=== PATIENT | female | born 2000 | race Caucasian/White ===

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

== ENCOUNTER → 2022-10-12 09:24 | Outpatient (BNVA) | payer MEDICAID, SELFPAY | PROVIDERS: PCP Nurse Practitioner Family; Visit Provider Nurse Practitioner Women's Health | DX: Z34.90 Encounter for supervision of normal pregnancy, unspecified, unspecified trimester (principal); Z32.00 Encounter for pregnancy test, result unknown | CPT/HCPCS: 81025; 84315 ==

== ENCOUNTER → 2022-10-19 08:48 | Outpatient (BNVA) | payer MEDICAID, SELFPAY | PROVIDERS: PCP Nurse Practitioner Family; Visit Provider Obstetrics & Gynecology | DX: Z36.87 Encounter for antenatal screening for uncertain dates (principal) | CPT/HCPCS: 76817 ==

== ENCOUNTER 2022-10-22 11:51 | Outpatient (CLI) | payer MEDICAID, SELFPAY | END 2022-10-22 11:52 | disposition home or self-care (01) | PROVIDERS: Visit Provider Nurse Practitioner Women's Health | DX: O02.1 Missed abortion (principal) | CPT/HCPCS: 84702 ==

== ENCOUNTER 2022-10-24 13:05 | Outpatient (CLI) | payer MEDICAID, SELFPAY | END 2022-10-24 13:06 | disposition home or self-care (01) | PROVIDERS: PCP Nurse Practitioner Women's Health; Visit Provider Nurse Practitioner Women's Health | DX: O02.1 Missed abortion (principal) | CPT/HCPCS: 36415; 84702 ==

== ENCOUNTER → 2022-10-28 11:30 | Outpatient (BNVA) | payer MEDICAID, SELFPAY | PROVIDERS: PCP Nurse Practitioner Women's Health; Visit Provider Nurse Practitioner Women's Health | DX: O02.1 Missed abortion (principal) | CPT/HCPCS: 84702 ==

== ENCOUNTER 2022-11-05 14:04 | Emergency (ER) | payer MEDICAID, SELFPAY ==
[2022-11-05 14:16] VITALS: BP 118/76; PULSE 78; RESP 16; TEMP 36.4; O2SAT 99; BMI 26.6
--- NOTE | 2022-11-05 14:25 | USR_ITS ---
PROCEDURE INFORMATION: Exam: US , Transvaginal Exam date and time: 11/05/2022 2:45 PM Age: 22 years old Clinical indication: Lmp or gestational age (in weeks): 11w1d, by US 8w5d; Antepartum complications; Bleeding; ; Additional info: Bleeding 10 weeks LABS AND CLINICAL REPORTS: Last menstrual period start date: 08/19/2022 Gestational age (Established): 11 w 1 d Estimated due date (Established): 05/26/2023 TECHNIQUE: Imaging protocol: Real-time transvaginal obstetrical ultrasound of the maternal pelvis with image documentation. Transvaginal imaging was used for better evaluation of the fetus, adnexa, and/or cervix. COMPARISON: US OB transvaginal [id number] 10/19/2022 8:50 AM FINDINGS: Gestation: Single intrauterine . heart rate: There is no cardiac activity. Placenta: No visible subchorionic hemorrhage. BIOMETRY: Gestational age (AUA): 8 w 5 d by crown-rump length. Mean sac diameter: Mean sac diameter is 3.8 cm. This is slightly increased since 10/19/2022. Brodnax-Rump length (CRL): Brodnax-rump length is 2.2 cm (8 weeks 6 days). This is slightly decreased since 10/19/2022. MATERNAL: Cervix: Cervix is closed. Right ovary/adnexa: The right ovary is morphologically normal. The right ovary measures 2.2 x 2.2 x 1.7 cm for a volume of 4.3 cc. There is normal blood flow in the right ovary. Left ovary/adnexa: The left ovary is morphologically normal. The left ovary measures 2.9 x 2.4 x 1.8 cm for a volume of 6 cc. There is normal blood flow in the left ovary. Intraperitoneal space: Trace intraperitoneal free fluid in the posterior cul-de-sac. US/US OB transvaginal [id number] IMPRESSION: Intrauterine demise with persistent intrauterine gestational sac and closed cervix. Findings are similar to those seen on 10/19/2022.
--- NOTE | 2022-11-05 16:00 | ED_ITS ---
HPI - General: Chief complaint: Vaginal Bleeding Stated complaint: 10 weeks, vaginal bleeding Time Seen by Provider: 11/05/22 14:07 History of Present Illness: Ilda Henning is a 22-year-old female that presents to the emergency department with complaints of vaginal bleeding and abdominal cramping. Patient was estimated to be about 10 weeks although on October 19 she underwent an ultrasound that revealed demise. States that she has followed up although there is no documentation. Patient is alert and oriented with hemodynamic stability Date of Last Menstrual Period: 08/16/22 Associated symptoms: Deny abdominal pain, dysuria, headache(s), malaise, nausea or vomiting Review of Systems General: Reports: 10 or more systems reviewed and unremarkable except in HPI and below Const: Denies: fever(s), chills, change in appetite, change in weight, fatigue or malaise Eyes: Denies: change in vision, eye discomfort, eye discharge or eye redness ENMT: Denies: throat pain, enlarged tonsils, odynophagia, hoarseness, ear or mastoid pain, ear discharge, change in hearing, tinnitus, nasal discharge, nasal congestion, post nasal drip or sinus pain Card: Denies: chest pain, palpitations, irregular heart rhythm, edema, dyspnea on exertion, orthopnea or leg pain with exertion Resp: Denies: dyspnea, productive cough, non-productive cough, wheezing, stridor or chest congestion GI: Denies: abdominal pain, nausea, vomiting, dysphagia, diarrhea, constipation, bloating, GI cramping or hematochezia : Denies: flank pain, difficulty voiding, dysuria, urinary frequency, urinary urgency, urinary hesitancy, oliguria or hematuria Musc: Denies: neck pain, back pain, extremity pain, joint pain, joint swelling, joint redness, joint warmth or muscle weakness Skin/Breast: Denies: rash, pruritus, erythema, photosensitivity or new lesions Neuro: Denies: headache(s), numbness in extremities, weakness in extremities, sensory changes, lack of coordination, difficulty walking, frequent falls, dizziness, confusion, Slurred speech present, difficulty communicating thoughts, seizure-like activity or involuntary movements Endo: Denies: polyuria, polydipsia or tired all the time Yohannes/Lymph: Denies: easy bruising or easy bleeding PFSH ED PFSH: Surgical History History of tonsillectomy Tympanic tube insertion Social History Smoking and tobacco status: current every day smoker Second hand smoke exposure: Yes Smoking risk assessment/counseling performed?: No Alcohol intake: never Desire information about alcohol rehabilitation?: No Counseling given: No Substance/Drug Use: never Desire information about substance/drug rehabilitation?: No Counseling given: No Female Reproductive History: Date of last menstrual period: 08/16/22 Physical Exam Const: COMMON NORMALS: no acute distress, patient oriented x3 and alert GENERAL APPEARANCE: cooperative ORIENTATION/CONSCIOUSNESS: Yes awake, Yes oriented to person, Yes oriented to place and Yes oriented to time HENMT: COMMON NORMALS: normocephalic and atraumatic HEAD & SCALP: normocephalic and atraumatic FACE & SINUS: normal facial exam MOUTH: Normal oral and palatal mucosa present THROAT: posterior oropharynx normal Eye: COMMON NORMALS: Equal, round and reactive pupils present, EOMs intact bilaterally, conjunctivae normal and no scleral icterus GENERAL EYE: appearance normal, both eyes and all related structures ALIGNMENT: Yes alignment normal PERIORBITAL: periorbital findings normal CONJUNCTIVA: Yes conjunctivae normal PUPIL: Yes Equal, round and reactive pupils present Neck/C-Spine: COMMON NORMALS: full ROM GENERAL: Yes normal visual inspection Lymph: LYMPHATIC: no lymphadenopathy noted Chest: COMMONS NORMALS: normal inspection of the chest Breast/axilla inspection: Yes no chest deformity, asymmetry, normal contours, no nodules, masses, tenderness Resp: COMMON NORMALS: normal respiratory effort, No retractions, No use of accessory muscles and clear to auscultation bilaterally EFFORT & INSPECTION: Yes able to speak in complete sentences and Yes symmetric chest movement AUSCULTATION: clear to auscultation bilaterally Cardio: COMMON NORMALS: regular rate, regular rhythm and Peripheral pulses 2+ throughout RATE: regular rate RHYTHM: regular rhythm PERIPHERAL PULSES: Peripheral pulses 2+ throughout GI: COMMON NORMALS: Normal to inspection, nondistended, normoactive bowel sounds present, Soft to palpation, non-tender and No hepatosplenomegaly present INSPECTION: Yes normal to inspection AUSCULTATION: Yes normoactive bowel sounds PALPATION: Yes Soft to palpation and Yes No hepatosplenomegaly present RECTAL EXAM: deferred Extremity: COMMON NORMALS: normal to inspection GENERAL: Yes normal exam except as noted Neuro: COMMON NORMALS: patient oriented x3 SENSORIUM/ORIENTATION: Yes alert, Yes oriented to person, Yes oriented to place and Yes oriented to time CRANIAL NERVES: Yes CN normal except as noted Psych: COMMON NORMALS: mental status grossly normal, Normal thought process present, cooperative, activity/motor behavior normal, denies homicidal ideation and denies suicidal ideation THOUGHT PROCESS: Normal thought process present Skin: COMMON NORMALS: no rashes or lesions noted, no wounds and turgor normal GENERAL SKIN EXAM: no rashes or lesions noted and turgor normal Course Vital Signs: Vital signs: Vital Signs Temperature 97.5 F L 11/05/22 14:16 Pulse Rate 78 11/05/22 14:16 Respiratory Rate 16 11/05/22 14:16 Blood Pressure 118/76 11/05/22 14:16 Pulse Oximetry 99 11/05/22 14:16 Oxygen Delivery Me thod Room Air 11/05/22 14:16 MDM - OB/Uterine Contractions Medical Decision Making Patient underwent laboratory and radiographic evaluation. Laboratory evaluation reveals falling hCG quant and ultrasound?transvaginal reveals demise. This is unchanged from last ultrasound on 10/19/2022. Patient states she is here because of the bleeding and does not know what to do. I talked with Dr. Pratt, OB. She recommends that the patient follows up with her ANTIQUE CLOCKS REPAIRER on Monday. I have communicated this with the patient and her family. Patient should return to the emergency department should she develop fever, chills, tachycardia or any other signs of infection. Lab Data Laboratory Results Ser , Semi-Qnt 2285.00 mIU/mL 11/05/22 15:10 Blood Type O Positive 11/05/22 15:10 Rho(D) Type Positive 11/05/22 15:10 Discharge Plan Discharge Patient Disposition: Home Clinical Impression: Incomplete , demise before 20 weeks with retention of fetus Condition: Stable Prescriptions: No Action fhgtwwqz-fmp-Mk-FA 1 mg Tablet 1 tab PO DAILY Discharge Orders: Discharge ED (Routine); Ordered 11/05/22 Ordered By: Placido Mann Referrals: Josephine Kim NP [Primary Care Provider] - Discharge Diet: Advance as tolerated Discharge Activity: Resume usual activity Patient Instructions: Miscarriage (ED), Pain Management Activity Restrictions/Additional Instructions: Please follow-up with your ANTIQUE CLOCKS REPAIRER on Monday. As discussed you are miscarrying. You connect expect some heavy bleeding and cramping to come. If this does not occur you need to talk with your ANTIQUE CLOCKS REPAIRER. Please return to the emergency department if you develop any fever, chills, vomiting. Coding Level of Care Code ED Automotive Mechanic for Bertrand Solorio
[2022-11-05 16:16] VITALS: BP 118/76; PULSE 78; RESP 16; TEMP 36.4; O2SAT 99
== END 2022-11-05 16:18 | disposition home or self-care (01) ==
PROVIDERS: Emergency Medicine; Emergency Provider Nurse Practitioner; PCP Nurse Practitioner Women's Health
DX: O02.1 Missed abortion (principal); O99.331 Smoking (tobacco) complicating pregnancy, first trimester; F17.210 Nicotine dependence, cigarettes, uncomplicated; Z3A.10 10 weeks gestation of pregnancy
CPT/HCPCS: 36415; 76817; 84702; 86900; 99284